=== PATIENT | male | born 1955 | race Caucasian/White ===

== ENCOUNTER 2017-08-13 14:44 | Inpatient (IN) | payer SELFPAY ==
[~2017-08-13] VITALS: Ht 165.1 cm; Wt 86.2 kg
[~2017-08-13 14:44] MED LIST: INSU100V12 SQ; INVOK100TB PO; LEVO150 PO; LURA40TA PO; METF-283 PO; OMEG1CAP31 PO; TRAZ-147 PO
[2017-08-13] MEDS ORDERED: SODIUM CHLORIDE 0.9% 1000ML 1,000 ML IV ONE ×2 (15:26→16:47)
[2017-08-13 15:30] LABS: BASOPHILS % (AUTO) 1.2 % (0.0-5.0); EOSINOPHILS % (AUTO) 0.8 % (0.0-8.0); HEMATOCRIT 39.3 % (42-54); LYMPHOCYTES % (AUTO) 4.9 % (21.0-51.0); MEAN CORPUSCULAR HEMOGLOBIN 31.5 pg (27.0-33.0); MEAN CORPUSCULAR HGB CONC 34.7 g/dL (32.0-36.0); MEAN CORPUSCULAR VOLUME 90.9 fL (79-99); MONOCYTES % (AUTO) 4.3 % (3.0-13.0); NEUTROPHILS % (AUTO) 88.8 % (40.0-77.0); PLATELET COUNT (AUTO) 196 K/uL (130-400); RED BLOOD CELL COUNT(AUTO) 4.32 MIL/uL (4.50-6.20)
[2017-08-13 15:55] LABS: INR 0.95 (0.85-1.15)
[2017-08-13 16:06] LABS: ALBUMIN 2.8 g/dL (3.5-5.0); BILIRUBIN,TOTAL 0.6 mg/dL (0.2-1.0); CREATINE KINASE MB 4.6 ng/mL (0.5-3.6); CREATININE 2.2 mg/dL (0.5-1.5); POTASSIUM 4.5 mmol/L (3.5-5.1); TOTAL PROTEIN, SERUM 6.6 g/dL (6.0-8.3)
[2017-08-13] MEDS ORDERED: INSULIN HUMULIN R 100 UNIT/ML 3ML ONE (16:42)
[2017-08-14 01:08] VITALS: BP 125/72
[2017-08-14 03:23] VITALS: BP 121/77
[2017-08-14] MEDS ORDERED: GLUCAGON 1MG KIT 1 MG ML IM PRN (05:45)
[2017-08-14] MEDS: INSULIN HUMULIN R 100 UNIT/ML 3ML SQ SCH ×4 (06:29→21:00)
[2017-08-14 06:40] LABS: APPEARANCE,URINE Clear (CLEAR); BILIRUBIN,URINE Negative (NEGATIVE); COLOR,URINE Yellow (YELLOW); GLUCOSE, URINE (UA) >=1000 mg/dL (NEGATIVE); KETONES,URINE Trace mg/dL (NEGATIVE); LEUKOCYTE ESTERASE ,URINE Negative (NEGATIVE); NITRATE,URINE Negative (NEGATIVE); OCCULT BLOOD,URINE Negative (NEGATIVE); PH,URINE 5.5 (5.0-8.0); PROTEIN,URINE POS 1+ (NEGATIVE); UROBILINOGEN,URINE 0.2 mg/dL (0.2-1.0)
[2017-08-14 06:48] LABS: AMPHET/METH SCREEN,URINE NEGATIVE (NEGATIVE); BARBITURATE SCREEN, URINE NEGATIVE (NEGATIVE); BENZODIAZEPINES SCREEN,URINE NEGATIVE (NEGATIVE); CANNABINOID SCREEN,URINE NEGATIVE (NEGATIVE); COCAINE SCREEN,URINE NEGATIVE (NEGATIVE); OPIATE SCREEN,URINE NEGATIVE (NEGATIVE); PHENCYCLIDINE SCREEN,URINE NEGATIVE (NEGATIVE)
[2017-08-14 06:49] LABS: BACTERIA,URINE Rare /HPF (None Seen); SQUAMOUS EPITHELIAL CELL,UR Rare /LPF (0-2); WBC,URINE 0-1 /HPF (0-1)
[2017-08-14 07:00] VITALS: BP 109/57
[2017-08-14] MEDS ORDERED: IOPAMIDOL-370 100 ML VIAL IV ONE (08:51)
[2017-08-14] MEDS: PANTOPRAZOLE SODIUM 40 MG TABLET.DR PO SCH (09:36)
[2017-08-14 11:03] VITALS: BP 104/64
[2017-08-14 15:00] VITALS: BP 97/53
[2017-08-14 21:12] VITALS: BP 109/62
[2017-08-15] VITALS (7 sets, daily range): BP systolic 96–134; BP diastolic 56–69
[2017-08-15] MEDS: INSULIN HUMULIN R 100 UNIT/ML 3ML SQ SCH ×4 (06:53→20:28)
[2017-08-15] MEDS: PANTOPRAZOLE SODIUM 40 MG TABLET.DR PO SCH (10:18)
[2017-08-15] MEDS ORDERED: INSULIN HUMULIN R 100 UNIT/ML 3ML SQ SCH (12:30)
[2017-08-15] MEDS ORDERED: VANCOMYCIN PROTOCOL PER PHARMACY IV SCH (12:45)
[2017-08-15] MEDS ORDERED: CEFTRIAXONE 1GM/D5W 50ML 50 ML IV SCH (12:45)
[2017-08-15] MEDS ORDERED: COMPOUND IV REFRIGERATED 1 EACH IVSOLN MISC PRN (13:00)
[2017-08-15] MEDS ORDERED: VANCOMYCIN 1.75 GM in SODIUM CHLORIDE 0.9% 250 ML IV ONE (13:00)
[2017-08-15] MEDS ORDERED: CEFTRIAXONE SODIUM 1 GM IVP SCH (13:00)
[2017-08-15] MEDS ORDERED: SODIUM CHLORIDE 3% FOR INHALATION 4 ML/AMP VIAL.NEB IH ONE ×2 (13:53→18:20)
[2017-08-15] MEDS ORDERED: ZOSYN 3.375GM+NS 50ML 50 ML IV SCH (16:30)
[2017-08-15] MEDS: MEROPENEM 1 GM VIAL IVP SCH (17:14)
[2017-08-15] MEDS: INSULIN GLARGINE 100 UNITS/ML 10 ML VIAL SQ SCH (20:52)
[2017-08-16 03:00] VITALS: BP 94/63
[2017-08-16 04:19] LABS: HEMATOCRIT 34.2 % (42-54); MEAN CORPUSCULAR HEMOGLOBIN 31.5 pg (27.0-33.0); MEAN CORPUSCULAR HGB CONC 35.4 g/dL (32.0-36.0); PLATELET COUNT (AUTO) 151 K/uL (130-400); RED BLOOD CELL COUNT(AUTO) 3.85 MIL/uL (4.50-6.20); RED CELL DISTRIBUTION WIDTH 14.3 % (11.0-15.5); WHITE BLOOD COUNT (AUTO) 5.2 K/uL (4.8-10.8)
[2017-08-16 04:49] LABS: CREATININE 1.6 mg/dL (0.5-1.5); POTASSIUM 3.5 mmol/L (3.5-5.1)
[2017-08-16] MEDS: MEROPENEM 1 GM VIAL IVP SCH ×2 (04:57→17:08)
[2017-08-16 05:37] LABS: THYROID STIMULATING HORMONE 169.5 uIU/mL (0.36-3.74)
[2017-08-16] MEDS: INSULIN GLARGINE 100 UNITS/ML 10 ML VIAL SQ SCH ×2 (05:51→21:14)
[2017-08-16] MEDS: INSULIN HUMULIN R 100 UNIT/ML 3ML SQ SCH ×4 (05:52→21:15)
[2017-08-16] MEDS ORDERED: SODIUM CHLORIDE 3% FOR INHALATION 4 ML/AMP VIAL.NEB IH ONE (06:24)
[2017-08-16] MEDS ORDERED: LEVOTHYROXINE 150 MCG TABLET PO SCH (06:30)
[2017-08-16 08:20] VITALS: BP 115/81
[2017-08-16] MEDS ORDERED: VANCOMYCIN 1GM+NS 250ML 250 ML IV SCH (11:00)
[2017-08-16] MEDS: PANTOPRAZOLE SODIUM 40 MG TABLET.DR PO SCH (11:05)
[2017-08-16 12:00] VITALS: BP 128/83
[2017-08-16] MEDS ORDERED: ASPI-555 PO (14:59)
[2017-08-16] MEDS ORDERED: LEVO150 PO (14:59)
[2017-08-16] MEDS ORDERED: PITA2TAB2 PO (14:59)
[2017-08-16] MEDS ORDERED: INVOK100TB PO (14:59)
[2017-08-16] MEDS ORDERED: METF-283 PO (14:59)
[2017-08-16] MEDS ORDERED: LISI10TA7 PO (14:59)
[2017-08-16] MEDS ORDERED: OMEG1CAP31 PO (14:59)
[2017-08-16 17:01] VITALS: BP 124/86
[2017-08-16 19:00] VITALS: BP 140/79
[2017-08-16] MEDS: ETHAMBUTOL HCL 400 MG TABLET PO SCH (21:05)
[2017-08-16] MEDS: ISONIAZID 300 MG TAB PO SCH (21:06)
[2017-08-16] MEDS: RIFAMPIN 300 MG CAPSULE PO SCH (21:06)
[2017-08-16] MEDS: PYRIDOXINE HCL 50 MG TABLET PO SCH (21:06)
[2017-08-16] MEDS: PYRAZINAMIDE 500 MG TABLET PO SCH (21:06)
[2017-08-16 23:24] VITALS: BP 101/65
[2017-08-17] MEDS: IPRATROPIUM/ALBUTEROL SULFATE 3 ML SOLUTION IH SCH ×4 (00:09→19:10)
[2017-08-17 03:24] LABS: HEMATOCRIT 37.1 % (42-54); MEAN CORPUSCULAR HEMOGLOBIN 31.3 pg (27.0-33.0); MEAN CORPUSCULAR HGB CONC 34.9 g/dL (32.0-36.0); MEAN CORPUSCULAR VOLUME 89.7 fL (79-99); NUCLEATED RED BLOOD CELLS 0.1 % (0.0-0.19); PLATELET COUNT (AUTO) 140 K/uL (130-400); RED BLOOD CELL COUNT(AUTO) 4.13 MIL/uL (4.50-6.20); RED CELL DISTRIBUTION WIDTH 14.4 % (11.0-15.5); WHITE BLOOD COUNT (AUTO) 5.2 K/uL (4.8-10.8)
[2017-08-17 03:38] LABS: ALBUMIN 2.3 g/dL (3.5-5.0); BILIRUBIN,TOTAL 0.4 mg/dL (0.2-1.0); CREATININE 1.6 mg/dL (0.5-1.5); MAGNESIUM 1.8 mg/dL (1.80-2.40); POTASSIUM 3.6 mmol/L (3.5-5.1); TOTAL PROTEIN, SERUM 5.9 g/dL (6.0-8.3)
[2017-08-17] MEDS: MEROPENEM 1 GM VIAL IVP SCH (03:51)
[2017-08-17 04:12] VITALS: BP 93/51
[2017-08-17] MEDS: INSULIN HUMULIN R 100 UNIT/ML 3ML SQ SCH ×4 (06:03→21:00)
[2017-08-17] MEDS: LEVOTHYROXINE 88 MCG TABLET PO SCH (06:26)
[2017-08-17] MEDS: INSULIN GLARGINE 100 UNITS/ML 10 ML VIAL SQ SCH ×2 (06:30→22:36)
[2017-08-17 08:00] VITALS: BP 135/69
[2017-08-17] MEDS: PANTOPRAZOLE SODIUM 40 MG TABLET.DR PO SCH (10:37)
[2017-08-17] MEDS: PYRIDOXINE HCL 50 MG TABLET PO SCH (10:37)
[2017-08-17] MEDS: PYRAZINAMIDE 500 MG TABLET PO SCH (10:37)
[2017-08-17] MEDS: RIFAMPIN 300 MG CAPSULE PO SCH ×2 (10:37→22:40)
[2017-08-17] MEDS: ISONIAZID 300 MG TAB PO SCH (10:38)
[2017-08-17] MEDS: ETHAMBUTOL HCL 400 MG TABLET PO SCH (10:38)
[2017-08-17 11:00] VITALS: BP 109/63
[2017-08-17 16:00] VITALS: BP 108/66
[2017-08-17 20:00] VITALS: BP 115/56
[2017-08-18] VITALS: BP 116/64
[2017-08-18] MEDS: IPRATROPIUM/ALBUTEROL SULFATE 3 ML SOLUTION IH SCH ×5 (00:35→23:49)
[2017-08-18 04:00] VITALS: BP 106/66
[2017-08-18 04:22] LABS: ALBUMIN 2.3 g/dL (3.5-5.0); BILIRUBIN,DIRECT 0.1 mg/dL (0.0-0.3); BILIRUBIN,TOTAL 0.6 mg/dL (0.2-1.0); TOTAL PROTEIN, SERUM 5.9 g/dL (6.0-8.3)
[2017-08-18] MEDS: INSULIN HUMULIN R 100 UNIT/ML 3ML SQ SCH ×4 (05:53→21:00)
[2017-08-18] MEDS: INSULIN GLARGINE 100 UNITS/ML 10 ML VIAL SQ SCH ×2 (06:03→21:39)
[2017-08-18] MEDS: LEVOTHYROXINE 88 MCG TABLET PO SCH (06:04)
[2017-08-18 08:00] VITALS: BP 114/54
[2017-08-18] MEDS: ISONIAZID 300 MG TAB PO SCH (09:53)
[2017-08-18] MEDS: PANTOPRAZOLE SODIUM 40 MG TABLET.DR PO SCH (09:53)
[2017-08-18] MEDS: RIFAMPIN 300 MG CAPSULE PO SCH ×2 (09:53→21:41)
[2017-08-18] MEDS: PYRIDOXINE HCL 50 MG TABLET PO SCH (09:53)
[2017-08-18] MEDS: PYRAZINAMIDE 500 MG TABLET PO SCH (09:53)
[2017-08-18] MEDS: ETHAMBUTOL HCL 400 MG TABLET PO SCH (09:53)
[2017-08-18 11:00] VITALS: BP 123/85
[2017-08-18 16:00] VITALS: BP 135/66
[2017-08-18 20:00] VITALS: BP 108/65
[2017-08-19] VITALS (7 sets, daily range): BP systolic 95–117; BP diastolic 53–70
[2017-08-19] MEDS: INSULIN HUMULIN R 100 UNIT/ML 3ML SQ SCH ×4 (06:10→21:00)
[2017-08-19] MEDS: LEVOTHYROXINE 88 MCG TABLET PO SCH (06:13)
[2017-08-19] MEDS ORDERED: SODIUM CHLORIDE 3% FOR INHALATION 4 ML/AMP VIAL.NEB IH ONE (06:17)
[2017-08-19] MEDS: INSULIN GLARGINE 100 UNITS/ML 10 ML VIAL SQ SCH ×2 (06:49→21:10)
[2017-08-19] MEDS: IPRATROPIUM/ALBUTEROL SULFATE 3 ML SOLUTION IH SCH ×3 (06:56→18:39)
[2017-08-19] MEDS: PYRIDOXINE HCL 50 MG TABLET PO SCH (11:00)
[2017-08-19] MEDS: ISONIAZID 300 MG TAB PO SCH (11:00)
[2017-08-19] MEDS: PYRAZINAMIDE 500 MG TABLET PO SCH (11:00)
[2017-08-19] MEDS: ETHAMBUTOL HCL 400 MG TABLET PO SCH (11:00)
[2017-08-19] MEDS: RIFAMPIN 300 MG CAPSULE PO SCH ×2 (11:00→21:09)
[2017-08-19] MEDS: PANTOPRAZOLE SODIUM 40 MG TABLET.DR PO SCH (11:01)
[2017-08-19] MEDS ORDERED: INSULIN GLARGINE 100 UNITS/ML 10 ML VIAL SQ SCH (21:00)
[2017-08-19] MEDS: PITAVASTATIN CALCIUM 2 MG PO SCH (21:00)
[2017-08-20] MEDS: IPRATROPIUM/ALBUTEROL SULFATE 3 ML SOLUTION IH SCH ×4 (00:06→18:02)
[2017-08-20 03:15] VITALS: BP 92/53
[2017-08-20 04:16] LABS: ALBUMIN 2.5 g/dL (3.5-5.0); BILIRUBIN,DIRECT 0.1 mg/dL (0.0-0.3); BILIRUBIN,TOTAL 0.4 mg/dL (0.2-1.0)
[2017-08-20] MEDS: INSULIN HUMULIN R 100 UNIT/ML 3ML SQ SCH ×4 (06:38→21:00)
[2017-08-20] MEDS: LEVOTHYROXINE 88 MCG TABLET PO SCH (06:57)
[2017-08-20 08:09] VITALS: BP 111/59
[2017-08-20] MEDS: LISINOPRIL 10 MG TABLET PO SCH (09:00)
[2017-08-20] MEDS: PYRIDOXINE HCL 50 MG TABLET PO SCH (09:53)
[2017-08-20] MEDS: METFORMIN HCL 500 MG TAB.SR.24H PO SCH (09:53)
[2017-08-20] MEDS: ISONIAZID 300 MG TAB PO SCH (09:54)
[2017-08-20] MEDS: PANTOPRAZOLE SODIUM 40 MG TABLET.DR PO SCH (09:54)
[2017-08-20] MEDS: PYRAZINAMIDE 500 MG TABLET PO SCH (09:54)
[2017-08-20] MEDS: RIFAMPIN 300 MG CAPSULE PO SCH ×2 (09:54→21:07)
[2017-08-20] MEDS: ASPIRIN 81 MG EC TAB PO SCH (09:54)
[2017-08-20] MEDS: ETHAMBUTOL HCL 400 MG TABLET PO SCH (09:54)
[2017-08-20 12:00] VITALS: BP 130/82
[2017-08-20 16:00] VITALS: BP 100/62
[2017-08-20 19:18] VITALS: BP 104/62
[2017-08-20] MEDS: PITAVASTATIN CALCIUM 2 MG PO SCH (21:00)
[2017-08-20] MEDS: INSULIN GLARGINE 100 UNITS/ML 10 ML VIAL SQ SCH (21:09)
[2017-08-21] VITALS (7 sets, daily range): BP systolic 98–123; BP diastolic 59–86
[2017-08-21] MEDS: IPRATROPIUM/ALBUTEROL SULFATE 3 ML SOLUTION IH SCH ×5 (00:50→23:26)
[2017-08-21] MEDS: INSULIN HUMULIN R 100 UNIT/ML 3ML SQ SCH ×4 (06:12→20:49)
[2017-08-21] MEDS: LEVOTHYROXINE 88 MCG TABLET PO SCH (06:12)
[2017-08-21] MEDS: PYRIDOXINE HCL 50 MG TABLET PO SCH (10:11)
[2017-08-21] MEDS: ETHAMBUTOL HCL 400 MG TABLET PO SCH (10:11)
[2017-08-21] MEDS: RIFAMPIN 300 MG CAPSULE PO SCH ×2 (10:11→20:47)
[2017-08-21] MEDS: ASPIRIN 81 MG EC TAB PO SCH (10:12)
[2017-08-21] MEDS: METFORMIN HCL 500 MG TAB.SR.24H PO SCH (10:12)
[2017-08-21] MEDS: LISINOPRIL 10 MG TABLET PO SCH (10:12)
[2017-08-21] MEDS: PANTOPRAZOLE SODIUM 40 MG TABLET.DR PO SCH (10:12)
[2017-08-21] MEDS: PYRAZINAMIDE 500 MG TABLET PO SCH (10:12)
[2017-08-21] MEDS: ISONIAZID 300 MG TAB PO SCH (10:12)
[2017-08-21] MEDS: INSULIN GLARGINE 100 UNITS/ML 10 ML VIAL SQ SCH (20:48)
[2017-08-21] MEDS: PITAVASTATIN CALCIUM 2 MG PO SCH (20:50)
[2017-08-22 04:02] VITALS: BP 97/65
[2017-08-22] MEDS: INSULIN HUMULIN R 100 UNIT/ML 3ML SQ SCH ×4 (05:44→21:00)
[2017-08-22] MEDS: LEVOTHYROXINE 88 MCG TABLET PO SCH (06:06)
[2017-08-22] MEDS: IPRATROPIUM/ALBUTEROL SULFATE 3 ML SOLUTION IH SCH ×4 (06:14→23:58)
[2017-08-22 08:00] VITALS: BP 100/62
[2017-08-22] MEDS: LISINOPRIL 10 MG TABLET PO SCH (10:17)
[2017-08-22] MEDS: ETHAMBUTOL HCL 400 MG TABLET PO SCH (10:17)
[2017-08-22] MEDS: RIFAMPIN 300 MG CAPSULE PO SCH ×2 (10:17→21:13)
[2017-08-22] MEDS: METFORMIN HCL 500 MG TAB.SR.24H PO SCH (10:17)
[2017-08-22] MEDS: PYRAZINAMIDE 500 MG TABLET PO SCH (10:18)
[2017-08-22] MEDS: ASPIRIN 81 MG EC TAB PO SCH (10:18)
[2017-08-22] MEDS: PANTOPRAZOLE SODIUM 40 MG TABLET.DR PO SCH (10:18)
[2017-08-22] MEDS: ISONIAZID 300 MG TAB PO SCH (10:18)
[2017-08-22] MEDS: PYRIDOXINE HCL 50 MG TABLET PO SCH (10:18)
[2017-08-22] MEDS ORDERED: SODIUM CHLORIDE 3% FOR INHALATION 4 ML/AMP VIAL.NEB IH ONE (11:20)
[2017-08-22 12:00] VITALS: BP 104/63
[2017-08-22 16:00] VITALS: BP 110/58
[2017-08-22 19:00] VITALS: BP 105/68
[2017-08-22] MEDS: PITAVASTATIN CALCIUM 2 MG PO SCH (21:00)
[2017-08-22] MEDS: INSULIN GLARGINE 100 UNITS/ML 10 ML VIAL SQ SCH (21:00)
[2017-08-22] MEDS: DEXTROSE 50%-WATER 50 ML DISP.SYRIN IV PRN (21:47)
[2017-08-23] VITALS (12 sets, daily range): BP systolic 84–118; BP diastolic 59–86
[2017-08-23 03:50] LABS: HEMATOCRIT 32.7 % (42-54); MEAN CORPUSCULAR HEMOGLOBIN 31.2 pg (27.0-33.0); MEAN CORPUSCULAR HGB CONC 34.8 g/dL (32.0-36.0); MEAN CORPUSCULAR VOLUME 89.7 fL (79-99); PLATELET COUNT (AUTO) 161 K/uL (130-400); RED BLOOD CELL COUNT(AUTO) 3.65 MIL/uL (4.50-6.20); RED CELL DISTRIBUTION WIDTH 13.7 % (11.0-15.5); WHITE BLOOD COUNT (AUTO) 5.4 K/uL (4.8-10.8)
[2017-08-23 04:26] LABS: ALBUMIN 2.5 g/dL (3.5-5.0); BILIRUBIN,DIRECT 0.1 mg/dL (0.0-0.3); BILIRUBIN,TOTAL 0.3 mg/dL (0.2-1.0); CREATININE 1.9 mg/dL (0.5-1.5); POTASSIUM 4.1 mmol/L (3.5-5.1); TOTAL PROTEIN, SERUM 6.1 g/dL (6.0-8.3)
[2017-08-23] MEDS: IPRATROPIUM/ALBUTEROL SULFATE 3 ML SOLUTION IH SCH ×4 (06:08→23:50)
[2017-08-23] MEDS ORDERED: SODIUM CHLORIDE 3% FOR INHALATION 4 ML/AMP VIAL.NEB IH ONE (06:13)
[2017-08-23] MEDS: INSULIN HUMULIN R 100 UNIT/ML 3ML SQ SCH ×4 (06:26→21:00)
[2017-08-23] MEDS: LEVOTHYROXINE 88 MCG TABLET PO SCH (06:26)
[2017-08-23] MEDS: METFORMIN HCL 500 MG TAB.SR.24H PO SCH (08:00)
[2017-08-23] MEDS: ASPIRIN 81 MG EC TAB PO SCH (08:00)
[2017-08-23] MEDS: PANTOPRAZOLE SODIUM 40 MG TABLET.DR PO SCH (08:01)
[2017-08-23] MEDS: LISINOPRIL 10 MG TABLET PO SCH (08:01)
[2017-08-23] MEDS ORDERED: MIDAZOLAM HCL 1 MG/ML 2ML VIAL ONE (14:10)
[2017-08-23] MEDS ORDERED: FENTANYL CITRATE PF 50 MCG/1 ML 2ML VIAL ONE (14:11)
[2017-08-23] MEDS: RIFAMPIN 300 MG CAPSULE PO SCH ×2 (16:31→22:17)
[2017-08-23] MEDS: ISONIAZID 300 MG TAB PO SCH (16:31)
[2017-08-23] MEDS: ETHAMBUTOL HCL 400 MG TABLET PO SCH (16:31)
[2017-08-23] MEDS: PYRIDOXINE HCL 50 MG TABLET PO SCH (16:31)
[2017-08-23] MEDS: PYRAZINAMIDE 500 MG TABLET PO SCH (16:32)
[2017-08-23] MEDS: INSULIN GLARGINE 100 UNITS/ML 10 ML VIAL SQ SCH (21:00)
[2017-08-23] MEDS: PITAVASTATIN CALCIUM 2 MG PO SCH (21:00)
[2017-08-24] VITALS (7 sets, daily range): BP systolic 101–119; BP diastolic 48–75
[2017-08-24 04:12] LABS: CREATININE 1.6 mg/dL (0.5-1.5)
[2017-08-24 04:17] LABS: HEMATOCRIT 31.1 % (42-54); MEAN CORPUSCULAR HEMOGLOBIN 33.3 pg (27.0-33.0); MEAN CORPUSCULAR HGB CONC 37.1 g/dL (32.0-36.0); MEAN CORPUSCULAR VOLUME 89.9 fL (79-99); NUCLEATED RED BLOOD CELLS 0.1 % (0.0-0.19); PLATELET COUNT (AUTO) 164 K/uL (130-400); RED BLOOD CELL COUNT(AUTO) 3.46 MIL/uL (4.50-6.20); RED CELL DISTRIBUTION WIDTH 13.7 % (11.0-15.5); WHITE BLOOD COUNT (AUTO) 5.5 K/uL (4.8-10.8)
[2017-08-24] MEDS: IPRATROPIUM/ALBUTEROL SULFATE 3 ML SOLUTION IH SCH ×4 (06:12→23:33)
[2017-08-24 06:38] LABS: BAND NEUTROPHILS % (MANUAL) 1 % (0-2); EOSINOPHILS % (MANUAL) 5 % (1-6); LYMPHOCYTES % (MANUAL) 17 % (22-44); MONOCYTES % (MANUAL) 2 % (2-9); SEGMENTED NEUTROPHILS % 75 % (40-70)
[2017-08-24 06:39] LABS: MAN.DIFF COMMENT-IMPRESSION MANUAL DIFFERENTIAL; PLATELET MORPHOLOGY COMMENT LARGE PLTS PRESENT
[2017-08-24] MEDS: INSULIN HUMULIN R 100 UNIT/ML 3ML SQ SCH ×4 (07:30→21:00)
[2017-08-24] MEDS ORDERED: LEVOTHYROXINE 75 MCG TABLET ONE (07:34)
[2017-08-24] MEDS: LEVOTHYROXINE 88 MCG TABLET PO SCH (08:06)
[2017-08-24] MEDS: PANTOPRAZOLE SODIUM 40 MG TABLET.DR PO SCH (10:26)
[2017-08-24] MEDS: ISONIAZID 300 MG TAB PO SCH (10:26)
[2017-08-24] MEDS: PYRIDOXINE HCL 50 MG TABLET PO SCH (10:26)
[2017-08-24] MEDS: ASPIRIN 81 MG EC TAB PO SCH (10:26)
[2017-08-24] MEDS: RIFAMPIN 300 MG CAPSULE PO SCH ×2 (10:27→20:08)
[2017-08-24] MEDS: PYRAZINAMIDE 500 MG TABLET PO SCH (10:27)
[2017-08-24] MEDS: LISINOPRIL 10 MG TABLET PO SCH (10:27)
[2017-08-24] MEDS: ETHAMBUTOL HCL 400 MG TABLET PO SCH (10:28)
[2017-08-24] MEDS: METFORMIN HCL 500 MG TAB.SR.24H PO SCH (10:28)
[2017-08-24] MEDS: INSULIN GLARGINE 100 UNITS/ML 10 ML VIAL SQ SCH (20:09)
[2017-08-24] MEDS: PITAVASTATIN CALCIUM 2 MG PO SCH (20:09)
[2017-08-25] VITALS (7 sets, daily range): BP systolic 79–135; BP diastolic 43–83
[2017-08-25 04:11] LABS: HEMATOCRIT 31.3 % (42-54); MEAN CORPUSCULAR HEMOGLOBIN 31.7 pg (27.0-33.0); MEAN CORPUSCULAR HGB CONC 35.3 g/dL (32.0-36.0); MEAN CORPUSCULAR VOLUME 89.8 fL (79-99); PLATELET COUNT (AUTO) 165 K/uL (130-400); RED BLOOD CELL COUNT(AUTO) 3.48 MIL/uL (4.50-6.20); RED CELL DISTRIBUTION WIDTH 13.7 % (11.0-15.5); WHITE BLOOD COUNT (AUTO) 5.5 K/uL (4.8-10.8)
[2017-08-25 04:28] LABS: ALBUMIN 2.6 g/dL (3.5-5.0); BILIRUBIN,TOTAL 0.3 mg/dL (0.2-1.0); CREATININE 2.1 mg/dL (0.5-1.5); MAGNESIUM 1.6 mg/dL (1.80-2.40); PHOSPHORUS 4.4 mg/dL (2.5-4.9); POTASSIUM 4.4 mmol/L (3.5-5.1); TOTAL PROTEIN, SERUM 6.3 g/dL (6.0-8.3)
[2017-08-25 04:55] LABS: BAND NEUTROPHILS % (MANUAL) 13 % (0-2); EOSINOPHILS % (MANUAL) 5 % (1-6); LYMPHOCYTES % (MANUAL) 28 % (22-44); MONOCYTES % (MANUAL) 3 % (2-9); SEGMENTED NEUTROPHILS % 51 % (40-70)
[2017-08-25 04:56] LABS: MAN.DIFF COMMENT-IMPRESSION MANUAL DIFFERENTIAL; PLATELET MORPHOLOGY COMMENT ADEQUATE
[2017-08-25] MEDS: LEVOTHYROXINE 88 MCG TABLET PO SCH (06:22)
[2017-08-25] MEDS: INSULIN HUMULIN R 100 UNIT/ML 3ML SQ SCH ×4 (06:23→21:00)
[2017-08-25] MEDS: IPRATROPIUM/ALBUTEROL SULFATE 3 ML SOLUTION IH SCH ×4 (06:53→23:40)
[2017-08-25] MEDS ORDERED: MAGNESIUM 2GM PREMIX 50ML 50 ML IV SCH (08:15)
[2017-08-25] MEDS: RIFAMPIN 300 MG CAPSULE PO SCH ×2 (10:45→21:55)
[2017-08-25] MEDS: PYRAZINAMIDE 500 MG TABLET PO SCH (10:45)
[2017-08-25] MEDS: PANTOPRAZOLE SODIUM 40 MG TABLET.DR PO SCH (10:45)
[2017-08-25] MEDS: PYRIDOXINE HCL 50 MG TABLET PO SCH (10:45)
[2017-08-25] MEDS: ETHAMBUTOL HCL 400 MG TABLET PO SCH (10:45)
[2017-08-25] MEDS: METFORMIN HCL 500 MG TAB.SR.24H PO SCH (10:45)
[2017-08-25] MEDS: ISONIAZID 300 MG TAB PO SCH (10:45)
[2017-08-25] MEDS: ASPIRIN 81 MG EC TAB PO SCH (10:45)
[2017-08-25] MEDS ORDERED: MAGNESIUM OXIDE 400 MG TABLET PO SCH (14:13)
[2017-08-25] MEDS: PITAVASTATIN CALCIUM 2 MG PO SCH (21:00)
[2017-08-25] MEDS: INSULIN GLARGINE 100 UNITS/ML 10 ML VIAL SQ SCH (21:58)
[2017-08-26] VITALS (7 sets, daily range): BP systolic 97–125; BP diastolic 49–82
[2017-08-26 05:53] LABS: HEMATOCRIT 31.7 % (42-54); MEAN CORPUSCULAR HEMOGLOBIN 32.2 pg (27.0-33.0); MEAN CORPUSCULAR HGB CONC 35.7 g/dL (32.0-36.0); MEAN CORPUSCULAR VOLUME 90.2 fL (79-99); NUCLEATED RED BLOOD CELLS 0.1 % (0.0-0.19); PLATELET COUNT (AUTO) 174 K/uL (130-400); RED BLOOD CELL COUNT(AUTO) 3.52 MIL/uL (4.50-6.20); RED CELL DISTRIBUTION WIDTH 14.2 % (11.0-15.5); WHITE BLOOD COUNT (AUTO) 5.1 K/uL (4.8-10.8)
[2017-08-26 06:08] LABS: CREATININE 1.7 mg/dL (0.5-1.5); MAGNESIUM 1.9 mg/dL (1.80-2.40); POTASSIUM 4.2 mmol/L (3.5-5.1)
[2017-08-26] MEDS: IPRATROPIUM/ALBUTEROL SULFATE 3 ML SOLUTION IH SCH ×4 (06:11→23:34)
[2017-08-26 06:20] LABS: BASOPHILS % (MANUAL) 2 % (0-2); EOSINOPHILS % (MANUAL) 3 % (1-6); LYMPHOCYTES % (MANUAL) 30 % (22-44); MAN.DIFF COMMENT-IMPRESSION MANUAL DIFFERENTIAL; MONOCYTES % (MANUAL) 5 % (2-9); PLATELET MORPHOLOGY COMMENT ADEQUATE; SEGMENTED NEUTROPHILS % 60 % (40-70)
[2017-08-26] MEDS: LEVOTHYROXINE 88 MCG TABLET PO SCH (06:22)
[2017-08-26] MEDS: INSULIN HUMULIN R 100 UNIT/ML 3ML SQ SCH ×3 (06:49→20:51)
[2017-08-26] MEDS: RIFAMPIN 300 MG CAPSULE PO SCH ×2 (09:44→20:47)
[2017-08-26] MEDS: ETHAMBUTOL HCL 400 MG TABLET PO SCH (09:45)
[2017-08-26] MEDS: PANTOPRAZOLE SODIUM 40 MG TABLET.DR PO SCH (09:45)
[2017-08-26] MEDS: ISONIAZID 300 MG TAB PO SCH (09:45)
[2017-08-26] MEDS: PYRIDOXINE HCL 50 MG TABLET PO SCH (09:45)
[2017-08-26] MEDS: METFORMIN HCL 500 MG TAB.SR.24H PO SCH (09:45)
[2017-08-26] MEDS: ASPIRIN 81 MG EC TAB PO SCH (09:45)
[2017-08-26] MEDS: PYRAZINAMIDE 500 MG TABLET PO SCH (09:49)
[2017-08-26] MEDS ORDERED: MAGNESIUM 2GM PREMIX 50ML 50 ML IV SCH (17:30)
[2017-08-26] MEDS ORDERED: INSULIN GLARGINE 100 UNITS/ML 10 ML VIAL SQ ONE (20:15)
[2017-08-26] MEDS: PITAVASTATIN CALCIUM 2 MG PO SCH (20:50)
[2017-08-26] MEDS: INSULIN GLARGINE 100 UNITS/ML 10 ML VIAL SQ SCH (20:50)
[2017-08-27 03:15] VITALS: BP 111/72
[2017-08-27 04:06] LABS: HEMATOCRIT 33.7 % (42-54); MEAN CORPUSCULAR HEMOGLOBIN 31.3 pg (27.0-33.0); MEAN CORPUSCULAR HGB CONC 34.6 g/dL (32.0-36.0); MEAN CORPUSCULAR VOLUME 90.5 fL (79-99); NUCLEATED RED BLOOD CELLS 0.1 % (0.0-0.19); PLATELET COUNT (AUTO) 184 K/uL (130-400); RED BLOOD CELL COUNT(AUTO) 3.73 MIL/uL (4.50-6.20); RED CELL DISTRIBUTION WIDTH 14.2 % (11.0-15.5); WHITE BLOOD COUNT (AUTO) 4.4 K/uL (4.8-10.8)
[2017-08-27 04:30] LABS: ALBUMIN 2.6 g/dL (3.5-5.0); BILIRUBIN,TOTAL 0.3 mg/dL (0.2-1.0); CREATININE 1.6 mg/dL (0.5-1.5); MAGNESIUM 1.7 mg/dL (1.80-2.40); PHOSPHORUS 3.8 mg/dL (2.5-4.9); POTASSIUM 4.1 mmol/L (3.5-5.1); TOTAL PROTEIN, SERUM 6.5 g/dL (6.0-8.3)
[2017-08-27 05:18] LABS: BAND NEUTROPHILS % (MANUAL) 8 % (0-2); BASOPHILS % (MANUAL) 1 % (0-2); EOSINOPHILS % (MANUAL) 2 % (1-6); LYMPHOCYTES % (MANUAL) 22 % (22-44); MONOCYTES % (MANUAL) 5 % (2-9); SEGMENTED NEUTROPHILS % 62 % (40-70)
[2017-08-27 05:19] LABS: MAN.DIFF COMMENT-IMPRESSION MANUAL DIFFERENTIAL; PLATELET MORPHOLOGY COMMENT ADEQUATE
[2017-08-27] MEDS: LEVOTHYROXINE 88 MCG TABLET PO SCH (06:14)
[2017-08-27] MEDS: IPRATROPIUM/ALBUTEROL SULFATE 3 ML SOLUTION IH SCH ×3 (06:18→18:40)
[2017-08-27] MEDS: INSULIN HUMULIN R 100 UNIT/ML 3ML SQ SCH ×4 (06:23→21:00)
[2017-08-27] MEDS: DEXTROSE 50%-WATER 50 ML DISP.SYRIN IV PRN (07:23)
[2017-08-27 08:00] VITALS: BP_SYST 124; BP_SYST 93; BP_DIAS 54; BP_DIAS 62
[2017-08-27] MEDS: METFORMIN HCL 500 MG TAB.SR.24H PO SCH (10:07)
[2017-08-27] MEDS: PANTOPRAZOLE SODIUM 40 MG TABLET.DR PO SCH (10:07)
[2017-08-27] MEDS: ISONIAZID 300 MG TAB PO SCH (10:07)
[2017-08-27] MEDS: ASPIRIN 81 MG EC TAB PO SCH (10:07)
[2017-08-27] MEDS: PYRIDOXINE HCL 50 MG TABLET PO SCH (10:07)
[2017-08-27] MEDS: RIFAMPIN 300 MG CAPSULE PO SCH ×2 (10:07→22:48)
[2017-08-27] MEDS: ETHAMBUTOL HCL 400 MG TABLET PO SCH (10:08)
[2017-08-27] MEDS: PYRAZINAMIDE 500 MG TABLET PO SCH (10:09)
[2017-08-27 12:00] VITALS: BP 128/80
[2017-08-27] MEDS ORDERED: MAGNESIUM SULFATE 1 GM in SODIUM CHLORIDE 0.9% 50 ML IV SCH (13:00)
[2017-08-27 16:00] VITALS: BP 104/56
[2017-08-27 20:39] VITALS: BP 101/66
[2017-08-27] MEDS: PITAVASTATIN CALCIUM 2 MG PO SCH (21:00)
[2017-08-27] MEDS: INSULIN GLARGINE 100 UNITS/ML 10 ML VIAL SQ SCH (22:54)
[2017-08-28] VITALS: BP 111/61
[2017-08-28] MEDS: IPRATROPIUM/ALBUTEROL SULFATE 3 ML SOLUTION IH SCH ×4 (00:05→18:18)
[2017-08-28 03:00] VITALS: BP 100/58
[2017-08-28] MEDS: INSULIN HUMULIN R 100 UNIT/ML 3ML SQ SCH ×4 (05:55→21:00)
[2017-08-28] MEDS: LEVOTHYROXINE 88 MCG TABLET PO SCH (06:09)
[2017-08-28 06:12] LABS: HEMATOCRIT 31.6 % (42-54); MEAN CORPUSCULAR HEMOGLOBIN 32.3 pg (27.0-33.0); MEAN CORPUSCULAR HGB CONC 35.6 g/dL (32.0-36.0); MEAN CORPUSCULAR VOLUME 90.6 fL (79-99); PLATELET COUNT (AUTO) 190 K/uL (130-400); RED BLOOD CELL COUNT(AUTO) 3.49 MIL/uL (4.50-6.20); RED CELL DISTRIBUTION WIDTH 14.3 % (11.0-15.5); WHITE BLOOD COUNT (AUTO) 4.4 K/uL (4.8-10.8)
[2017-08-28 06:20] LABS: CREATININE 1.5 mg/dL (0.5-1.5); MAGNESIUM 2.1 mg/dL (1.80-2.40); POTASSIUM 4.4 mmol/L (3.5-5.1)
[2017-08-28 07:22] LABS: BASOPHILS % (MANUAL) 3 % (0-2); EOSINOPHILS % (MANUAL) 4 % (1-6); LYMPHOCYTES % (MANUAL) 21 % (22-44); MAN.DIFF COMMENT-IMPRESSION MANUAL DIFFERENTIAL; MONOCYTES % (MANUAL) 6 % (2-9); REACTIVE LYMPHOCYTES 1 % (0-0); SEGMENTED NEUTROPHILS % 65 % (40-70)
[2017-08-28 07:23] LABS: PLATELET MORPHOLOGY COMMENT ADEQUATE
[2017-08-28 07:56] VITALS: BP 90/54
[2017-08-28] MEDS: ASPIRIN 81 MG EC TAB PO SCH (10:01)
[2017-08-28] MEDS: PANTOPRAZOLE SODIUM 40 MG TABLET.DR PO SCH (10:01)
[2017-08-28] MEDS: ETHAMBUTOL HCL 400 MG TABLET PO SCH (10:01)
[2017-08-28] MEDS: PYRIDOXINE HCL 50 MG TABLET PO SCH (10:01)
[2017-08-28] MEDS: RIFAMPIN 300 MG CAPSULE PO SCH ×2 (10:01→21:48)
[2017-08-28] MEDS: ISONIAZID 300 MG TAB PO SCH (10:01)
[2017-08-28] MEDS ORDERED: PYRAZINAMIDE 500 MG TABLET PO SCH (10:39)
[2017-08-28] MEDS ORDERED: ISONIAZID 300 MG TAB PO SCH (10:40)
[2017-08-28] MEDS ORDERED: ETHAMBUTOL HCL 400 MG TABLET PO SCH (10:41)
[2017-08-28 11:27] VITALS: BP 91/67
[2017-08-28 16:00] VITALS: BP 119/73
[2017-08-28 19:00] VITALS: BP 122/73
[2017-08-28] MEDS: PITAVASTATIN CALCIUM 2 MG PO SCH (21:00)
[2017-08-29 00:25] VITALS: BP 122/74
[2017-08-29] MEDS: IPRATROPIUM/ALBUTEROL SULFATE 3 ML SOLUTION IH SCH (00:46)
[2017-08-29 03:30] VITALS: BP 132/69
[2017-08-29 03:55] VITALS: BP 107/62
[2017-08-29] MEDS: LEVOTHYROXINE 88 MCG TABLET PO SCH (05:03)
[2017-08-29] MEDS: INSULIN HUMULIN R 100 UNIT/ML 3ML SQ SCH (05:37)
== END 2017-08-29 06:00 | disposition short-term general hospital (02) | DRG 167 ==
LOC: EDH 14:44 → EDHIP 14:45 → 4AH 22:57 → 3AH 08-15 09:32
PROVIDERS: ADMIT Family Medicine; ATTEND Family Medicine
PROC: 0B9G8ZX Drainage of Left Upper Lung Lobe, Via Natural or Artificial Opening Endoscopic, Diagnostic (ICD-10-PCS; principal; 2017-08-23)
PROC: 0B9C8ZX Drainage of Right Upper Lung Lobe, Via Natural or Artificial Opening Endoscopic, Diagnostic (ICD-10-PCS; 2017-08-23)
DX: J85.0 Gangrene and necrosis of lung (principal); A15.0 Tuberculosis of lung; E11.22 Type 2 diabetes mellitus with diabetic chronic kidney disease; I42.9 Cardiomyopathy, unspecified; N17.9 Acute kidney failure, unspecified; R78.81 Bacteremia; E11.65 Type 2 diabetes mellitus with hyperglycemia; E66.01 Morbid (severe) obesity due to excess calories; N18.3 Chronic kidney disease, stage 3 (moderate); I13.0 Hypertensive heart and chronic kidney disease with heart failure and stage 1 through stage 4 chronic kidney disease, or unspecified chronic kidney disease; I50.9 Heart failure, unspecified; B96.89 Other specified bacterial agents as the cause of diseases classified elsewhere; E03.9 Hypothyroidism, unspecified; E78.5 Hyperlipidemia, unspecified; E83.42 Hypomagnesemia; F31.9 Bipolar disorder, unspecified; G47.33 Obstructive sleep apnea (adult) (pediatric); M19.90 Unspecified osteoarthritis, unspecified site; Z77.22 Contact with and (suspected) exposure to environmental tobacco smoke (acute) (chronic); Z59.0 Homelessness; Z78.9 Other specified health status; Z83.3 Family history of diabetes mellitus; Z68.31 Body mass index [BMI] 31.0-31.9, adult; V89.2XXA Person injured in unspecified motor-vehicle accident, traffic, initial encounter; Y92.410 Unspecified street and highway as the place of occurrence of the external cause; Y93.89 Activity, other specified; Y99.8 Other external cause status
CPT/HCPCS: 36415; 70450; 71045; 71250; 72125; 74177; 80048; 80053; 80076; 80202; 80305; 81001; 82150; 82550; 82553; 82948; 83605; 83690; 83735; 84100; 84443; 84484; 85025; 85027; 85610; 85730; 86480; 87040; 87116; 87186; 87190; 87206; 87556; 92610; 93005; 93306; 94640; 94664; 99291; A4218; J0696; J1815; J2185; J2250; J3010; J3370; J3475; J7030; J7070; Q9967

== ENCOUNTER 2020-03-05 17:07 | Inpatient (IN) | payer MEDICAID, OTHER ==
[~2020-03-05] VITALS: Ht 165.1 cm; Wt 91.8 kg
[2020-03-05] MEDS ORDERED: ONDANSETRON HCL 4 MG/2 ML VIAL ONE (17:21)
[2020-03-05 17:45] LABS: BASOPHILS % (AUTO) 0.8 % (0.0-5.0); EOSINOPHILS % (AUTO) 2.2 % (0.0-8.0); MEAN CORPUSCULAR HEMOGLOBIN 29.5 pg (27.0-33.0); MEAN CORPUSCULAR HGB CONC 32.7 g/dL (32.0-36.0); MEAN CORPUSCULAR VOLUME 90.4 fL (79-99); MONOCYTES % (AUTO) 5.1 % (3.0-13.0); PLATELET COUNT (AUTO) 245 K/uL (130-400); RED BLOOD CELL COUNT(AUTO) 3.32 MIL/uL (4.50-6.20); RED CELL DISTRIBUTION WIDTH 14.6 % (11.0-15.5); WHITE BLOOD COUNT (AUTO) 10.7 K/uL (4.8-10.8)
[2020-03-05 18:13] LABS: ALBUMIN 3.5 g/dL (3.5-5.0); BILIRUBIN,TOTAL 0.2 mg/dL (0.2-1.0); CREATININE 2.4 mg/dL (0.5-1.5); POTASSIUM 5.6 mmol/L (3.5-5.1); TOTAL PROTEIN, SERUM 7.6 g/dL (6.0-8.3)
[2020-03-05] MEDS ORDERED: ASPIRIN 325 MG TABLET ONE (18:45)
[2020-03-05] MEDS ORDERED: FUROSEMIDE 10 MG/ML 4ML VIAL ONE (18:45)
[2020-03-05] MEDS ORDERED: FAMOTIDINE/PF 20 MG/2 ML VIAL IV ONE (18:46)
[2020-03-05 19:51] LABS: APPEARANCE,URINE Clear (CLEAR); BILIRUBIN,URINE Negative (NEGATIVE); COLOR,URINE Yellow (YELLOW); GLUCOSE, URINE (UA) Negative (NEGATIVE); KETONES,URINE Negative (NEGATIVE); LEUKOCYTE ESTERASE ,URINE Negative (NEGATIVE); NITRATE,URINE Negative (NEGATIVE); OCCULT BLOOD,URINE Small (NEGATIVE); PH,URINE 6.5 (5.0-8.0); PROTEIN,URINE 300 mg/dL (NEGATIVE); UROBILINOGEN,URINE 0.2 mg/dL (0.2-1.0)
[2020-03-05 20:06] LABS: BACTERIA,URINE Rare /HPF (None Seen); WBC,URINE 0-1 /HPF (0-1)
[2020-03-05 20:08] LABS: SQUAMOUS EPITHELIAL CELL,UR Rare /HPF (0-2)
[2020-03-05] MEDS ORDERED: CALCIUM GLUCONATE 1 GM/10 ML VIAL IV ONE (21:25)
[2020-03-05] MEDS ORDERED: SODIUM CHLORIDE 0.9% 50 ML IV ONE (21:26)
[2020-03-05] MEDS ORDERED: INSULIN HUMULIN R 100 UNIT/ML 3ML ONE (21:47)
[2020-03-05] MEDS ORDERED: SODIUM BICARB 50MEQ 50ML VIAL ONE (21:47)
[2020-03-05] MEDS ORDERED: DEXTROSE 50%-WATER 50 ML DISP.SYRIN IV ONE (21:48)
[2020-03-05] MEDS ORDERED: SODIUM POLYSTYRENE SULFONATE 15 GM/60 ML ML ONE (21:56)
[2020-03-05] MEDS ORDERED: ONDANSETRON HCL 4 MG/2 ML VIAL IV PRN (22:30)
[2020-03-05] MEDS ORDERED: ACETAMINOPHEN 325 MG TAB PO PRN (22:30)
[2020-03-05] MEDS ORDERED: NITROGLYCERIN 0.4 MG SL TAB SL PRN (22:30)
[2020-03-05] MEDS ORDERED: DEXTROSE 50%-WATER 50 ML DISP.SYRIN IV PRN (23:15)
[2020-03-05] MEDS ORDERED: GLUCAGON 1MG KIT 1 MG ML IM PRN (23:15)
[2020-03-06] VITALS (7 sets, daily range): BP systolic 139–164; BP diastolic 82–94
[2020-03-06] MEDS ORDERED: METF-444 PO (01:40)
[2020-03-06] MEDS ORDERED: GLIP5TAB11 PO (01:43)
[2020-03-06] MEDS: INSULIN HUMULIN R 100 UNIT/ML 3ML SQ SCH ×3 (05:20→20:42)
[2020-03-06] MEDS: ACETAMINOPHEN 325 MG TAB PO PRN ×2 (05:36→22:28)
[2020-03-06 05:40] LABS: BASOPHILS % (AUTO) 0.6 % (0.0-5.0); EOSINOPHILS % (AUTO) 1.8 % (0.0-8.0); HEMATOCRIT 26.6 % (42-54); LYMPHOCYTES % (AUTO) 11.1 % (21.0-51.0); MEAN CORPUSCULAR HEMOGLOBIN 29.4 pg (27.0-33.0); MEAN CORPUSCULAR HGB CONC 33.1 g/dL (32.0-36.0); NEUTROPHILS % (AUTO) 79.8 % (40.0-77.0); PLATELET COUNT (AUTO) 220 K/uL (130-400); RED BLOOD CELL COUNT(AUTO) 2.99 MIL/uL (4.50-6.20); RED CELL DISTRIBUTION WIDTH 14.2 % (11.0-15.5); WHITE BLOOD COUNT (AUTO) 9.8 K/uL (4.8-10.8)
[2020-03-06 07:01] LABS: ALANINE AMINOTRANSFERASE 81 U/L (12-78); ALBUMIN 3.1 g/dL (3.5-5.0); ASPARTATE AMINOTRANSFERASE 66 U/L (10-37); BILIRUBIN,DIRECT 0.1 mg/dL (0.0-0.3); BILIRUBIN,TOTAL 0.3 mg/dL (0.2-1.0); CARBON DIOXIDE 27 mmol/L (21-32); CHLORIDE 101 mmol/L (101-111); CREATININE 2.7 mg/dL (0.5-1.5); GLOMERULAR FILTR. RATE CALC 25 mL/min (>60); GLUCOSE,RANDOM 87 mg/dL (70-105); MYOGLOBIN 820 ng/mL (10-92); SODIUM SERUM 135 mmol/L (136-145); TOTAL PROTEIN, SERUM 6.8 g/dL (6.0-8.3); TROPONIN I < 0.04 ng/mL (0.00-0.06); UREA NITROGEN, BLOOD 47 mg/dL (7-18)
[2020-03-06 07:49] LABS: CREATINE KINASE, TOTAL 1087 U/L (21-232)
--- NOTE | 2020-03-06 11:00 | NUR ---
Referral for Homeless BG met with pt. who is calm, awake, alert and cooperative. Pt. reports that he is single and homeless for two days now. Pt. reports history of transient living throughout the [facility]. Pt. reports a sister Laura Tracey/[phone] who resides in [place], numerous nieces/nephews in [place]. Pt. requesting assistance with finding an apartment/housing or assisted living and verbalized to this worker that he will not return to any mcc. Pt. reported that he has stayed at [facility] and [facility] in [place] for m[facility] services and that he is not allowed to return to either mcc for breaking rules. SW spoke to pt. about mcc in [place] and pt. refused, stating it is too far, "all shelters are alike" and he would rather stay on the streets than in a mcc. Pt. also was staying with different friends, however, reports that he is not welcome back with them either. SW spoke with pt. about returning to be close with family in [place] or [place], however, he refused stating he wants to stay in the [facility]. BG provided pt. with contact information to Adult Protective Services to self report and to ask for assistance for himself. BG provided pt. with community resource list with additional numbers including [facility]. BG explained that pt. will need to enroll in programs for assistance as housing assistance from community service agencies require a timely process and that assisted living facilities are not covered by insurances or medicaid. Pt. receives monthly disability in the amount of $800/monthly and [employer] $117/month. [facility]. has [facility] and Medicaid, stating that if prescriptions are given, they are covered by his medicaid. Pt. is also aware of [facility]. Pt. denies any use of illicit substances, etoh or tobacco. Pt. reports a history of depression for which he was under the care of [facility], however, he has not had a follow up in over 2yrs as he has not had any symptoms. Pt. denied any history of suicide attempts or inpatient treatment. Pt. denies any current thoughts of harm to self or others, denies depressed mood or anxiety. Pt. has contact information for [facility] in the event that he needs to return to services. DCP: Pt. stated that at this time, he is unaware of where he will go when discharged, will try contacting friends; again, stating that he would rather stay on the streets than return to any of the shelters. Pt. to use [facility] at d/c. Addendum: 03/06/20 at 1530 by TWAN MONTE SS Amended: Links added.
[2020-03-06] MEDS: SODIUM CHLORIDE 0.9% 1000ML 1,000 ML IV SCH ×2 (13:30→23:11)
--- NOTE | 2020-03-06 16:24 | NUR ---
CM NOTE REFER TO SOCIAL SERVICE NOTE ON 03/06 FOR INFORMATION ON PATIENT. Addendum: 03/06/20 at 1624 by SYLVAIN MONTE RN CM Amended: Links added.
[2020-03-06] MEDS ORDERED: Vitamin B Complex/Vit C/Folic Acid PO SCH (17:00)
[2020-03-06] MEDS: FAMOTIDINE/PF 20 MG/2 ML VIAL IV SCH (17:10)
[2020-03-07] MEDS: ACETAMINOPHEN 325 MG TAB PO PRN (02:55)
[2020-03-07 03:52] VITALS: BP 129/58
[2020-03-07 04:57] LABS: HEMATOCRIT 26.1 % (42-54); MEAN CORPUSCULAR HEMOGLOBIN 29.4 pg (27.0-33.0); MEAN CORPUSCULAR HGB CONC 32.6 g/dL (32.0-36.0); MEAN CORPUSCULAR VOLUME 90.3 fL (79-99); RED BLOOD CELL COUNT(AUTO) 2.89 MIL/uL (4.50-6.20); RED CELL DISTRIBUTION WIDTH 14.6 % (11.0-15.5); WHITE BLOOD COUNT (AUTO) 5.7 K/uL (4.8-10.8)
[2020-03-07 05:11] LABS: CREATININE 2.6 mg/dL (0.5-1.5); MAGNESIUM 1.8 mg/dL (1.80-2.40); PHOSPHORUS 4.5 mg/dL (2.5-4.9); POTASSIUM 4.2 mmol/L (3.5-5.1); URIC ACID 6.7 mg/dL (2.6-7.2)
[2020-03-07] MEDS: SODIUM CHLORIDE 0.9% 1000ML 1,000 ML IV SCH ×2 (06:07→21:14)
[2020-03-07] MEDS: INSULIN HUMULIN R 100 UNIT/ML 3ML SQ SCH ×4 (06:27→21:13)
[2020-03-07 08:18] VITALS: BP 178/99
[2020-03-07] MEDS: FAMOTIDINE/PF 20 MG/2 ML VIAL IV SCH (08:22)
[2020-03-07] MEDS: AMLODIPINE BESYLATE 5 MG TAB PO SCH (08:23)
[2020-03-07] MEDS: Vitamin B Complex/Vit C/Folic Acid PO SCH (08:23)
[2020-03-07] MEDS ORDERED: TAMSULOSIN HCL 0.4 MG CAP.ER.24H PO SCH (09:15)
[2020-03-07] MEDS ORDERED: METOPROLOL TARTRATE 25 MG TAB PO SCH (09:15)
[2020-03-07 11:54] VITALS: BP 148/81
--- NOTE | 2020-03-07 16:00 | NUR ---
cm note spoke to dr Garcia regarding [facility] [facility] [place] and in agreement. met with patient and discussed dc planning, . Discussed options for Shelters in the area, d/t states no frends or family. Pt refuses to go to any shelters in the area. states has no family that he can live with and has no where to go at dc. closest family is in [place] and does not want to go there. call made to several private care homes, including [facility] [phone] and [facility] quote is $3500/month. call to [facility] [phone] and [facility] quote $[phone] per month. pt states unable to afford only has income of $800 per month, discussed [place] [facility] placement option and if not accepted possible private pay option, choice letter obtained, and referral sent to [facility] pending evaluations.
--- NOTE | 2020-03-07 16:05 | NUR ---
[facility]-SW contacted [facility]/Martina Noriega, left voicemail to contact this worker. Late Entry
[2020-03-07 16:27] VITALS: BP 111/72
[2020-03-07] MEDS ORDERED: RISPERIDONE 1 MG TABLET PO PRN (16:45)
[2020-03-07 20:38] VITALS: BP 124/75
[2020-03-07] MEDS: THIAMINE HCL 100 MG/ML 2ML VIAL IVP SCH (21:07)
[2020-03-07] MEDS: METOPROLOL TARTRATE 25 MG TAB PO SCH (21:07)
[2020-03-08 00:24] VITALS: BP 112/78
[2020-03-08] MEDS: SODIUM CHLORIDE 0.9% 1000ML 1,000 ML IV SCH ×3 (00:51→17:10)
[2020-03-08 03:57] VITALS: BP 143/70
[2020-03-08 03:57] LABS: HEMATOCRIT 27.5 % (42-54); MEAN CORPUSCULAR HEMOGLOBIN 29.8 pg (27.0-33.0); MEAN CORPUSCULAR HGB CONC 32.7 g/dL (32.0-36.0); MEAN CORPUSCULAR VOLUME 91.1 fL (79-99); RED BLOOD CELL COUNT(AUTO) 3.02 MIL/uL (4.50-6.20); RED CELL DISTRIBUTION WIDTH 14.4 % (11.0-15.5); WHITE BLOOD COUNT (AUTO) 5.2 K/uL (4.8-10.8)
[2020-03-08 04:09] LABS: % IRON SATURATION 14.5 % (30-44)
[2020-03-08 04:28] LABS: CREATININE 2.8 mg/dL (0.5-1.5); POTASSIUM 4.5 mmol/L (3.5-5.1)
[2020-03-08] MEDS: INSULIN HUMULIN R 100 UNIT/ML 3ML SQ SCH ×4 (05:22→21:00)
[2020-03-08 05:56] LABS: HEMOGLOBIN A1C 6.5 % (4.0-6.0)
[2020-03-08 06:09] LABS: THYROID STIMULATING HORMONE 85.08 uIU/mL (0.36-3.74)
[2020-03-08 07:47] VITALS: BP 141/77
[2020-03-08] MEDS ORDERED: LEVOTHYROXINE 50 MCG TABLET PO SCH (09:00)
[2020-03-08] MEDS: Vitamin B Complex/Vit C/Folic Acid PO SCH (09:14)
[2020-03-08] MEDS: FAMOTIDINE/PF 20 MG/2 ML VIAL IV SCH (09:14)
[2020-03-08] MEDS: TAMSULOSIN HCL 0.4 MG CAP.ER.24H PO SCH (09:14)
[2020-03-08] MEDS: THIAMINE HCL 100 MG/ML 2ML VIAL IVP SCH (09:14)
[2020-03-08] MEDS: METOPROLOL TARTRATE 25 MG TAB PO SCH ×2 (09:15→20:27)
[2020-03-08] MEDS: AMLODIPINE BESYLATE 5 MG TAB PO SCH (09:15)
[2020-03-08 10:30] VITALS: BP 151/75
[2020-03-08] MEDS ORDERED: COMPOUND IV MISC 1 EACH IVSOLN MISC PRN (13:45)
[2020-03-08 15:47] VITALS: BP 115/72
[2020-03-08 20:45] VITALS: BP 116/61
[2020-03-09 00:16] VITALS: BP 135/75
[2020-03-09] MEDS: SODIUM CHLORIDE 0.9% 1000ML 1,000 ML IV SCH ×2 (01:30→11:37)
[2020-03-09 03:40] VITALS: BP 118/47
[2020-03-09] MEDS: LEVOTHYROXINE 50 MCG TABLET PO SCH (05:45)
[2020-03-09 06:47] LABS: CREATININE 2.9 mg/dL (0.5-1.5); MAGNESIUM 1.9 mg/dL (1.80-2.40); POTASSIUM 4.2 mmol/L (3.5-5.1)
[2020-03-09] MEDS: INSULIN HUMULIN R 100 UNIT/ML 3ML SQ SCH ×4 (07:30→20:36)
[2020-03-09 08:35] VITALS: BP 124/67
[2020-03-09] MEDS: FAMOTIDINE/PF 20 MG/2 ML VIAL IV SCH (09:27)
[2020-03-09] MEDS: THIAMINE HCL 100 MG/ML 2ML VIAL IVP SCH (09:27)
[2020-03-09] MEDS: IRON SUCROSE COMPLEX 100 MG in SODIUM CHLORIDE 0.9% 50 ML IV SCH (09:27)
[2020-03-09] MEDS: Vitamin B Complex/Vit C/Folic Acid PO SCH (09:28)
[2020-03-09] MEDS: METOPROLOL TARTRATE 25 MG TAB PO SCH ×2 (09:29→20:35)
[2020-03-09] MEDS: AMLODIPINE BESYLATE 5 MG TAB PO SCH (09:29)
[2020-03-09] MEDS: TAMSULOSIN HCL 0.4 MG CAP.ER.24H PO SCH (09:29)
[2020-03-09 11:52] VITALS: BP 143/77
[2020-03-09] MEDS ORDERED: HEPARIN SODIUM 5000UNIT/ML 1ML VIAL SQ SCH (14:00)
[2020-03-09 15:37] VITALS: BP 126/72
[2020-03-09 20:15] VITALS: BP 138/62
[2020-03-09] MEDS: HEPARIN SODIUM 5000UNIT/ML 1ML VIAL SQ SCH (20:36)
[2020-03-10 00:25] VITALS: BP 135/65
[2020-03-10] MEDS: SODIUM CHLORIDE 0.9% 1000ML 1,000 ML IV SCH (01:17)
[2020-03-10 04:30] VITALS: BP 127/68
[2020-03-10] MEDS: INSULIN HUMULIN R 100 UNIT/ML 3ML SQ SCH ×4 (05:03→20:11)
[2020-03-10] MEDS: LEVOTHYROXINE 50 MCG TABLET PO SCH (05:05)
[2020-03-10 07:05] LABS: POTASSIUM 4.7 mmol/L (3.5-5.1)
[2020-03-10 07:30] VITALS: BP 118/60
--- NOTE | 2020-03-10 08:14 | NUR ---
Call made to Martina Noriega/Path Program, informed Martina in meeting this morning and message left.
[2020-03-10] MEDS: Vitamin B Complex/Vit C/Folic Acid PO SCH (09:49)
[2020-03-10] MEDS: METOPROLOL TARTRATE 25 MG TAB PO SCH ×2 (09:49→20:14)
[2020-03-10] MEDS: TAMSULOSIN HCL 0.4 MG CAP.ER.24H PO SCH (09:49)
[2020-03-10] MEDS: AMLODIPINE BESYLATE 5 MG TAB PO SCH (09:49)
[2020-03-10] MEDS: HEPARIN SODIUM 5000UNIT/ML 1ML VIAL SQ SCH ×2 (09:50→20:14)
[2020-03-10] MEDS: FAMOTIDINE/PF 20 MG/2 ML VIAL IV SCH (09:55)
[2020-03-10] MEDS: THIAMINE HCL 100 MG/ML 2ML VIAL IVP SCH (09:55)
[2020-03-10] MEDS: IRON SUCROSE COMPLEX 100 MG in SODIUM CHLORIDE 0.9% 50 ML IV SCH (09:57)
[2020-03-10 11:00] VITALS: BP 140/85
[2020-03-10 16:00] VITALS: BP 136/83
[2020-03-10 20:27] VITALS: BP 146/80
[2020-03-11 00:12] VITALS: BP 138/79
[2020-03-11 05:59] VITALS: BP 127/70
[2020-03-11] MEDS: LEVOTHYROXINE 50 MCG TABLET PO SCH (06:06)
[2020-03-11] MEDS: INSULIN HUMULIN R 100 UNIT/ML 3ML SQ SCH ×4 (06:06→20:21)
--- NOTE | 2020-03-11 07:30 | NUR ---
ASSESSMENT ENCOUNTERED PT AMBULATING IN HALLWAY, GAIT STEADY AND STRONG WITH STAND BY ASSIST. A&OX3, CALM COOPERATIVE AND DOES NOT APPEAR TO BE IN ANY DISTRESS NOR ANY NEURO DEFICITS PRESENT. PT DENIES PAIN, DIZZINESS OR LIGHTHEADEDNESS. CALL LIGHT WITHIN REACH.
[2020-03-11 07:41] VITALS: BP 139/68
[2020-03-11 08:30] LABS: CREATININE 3.1 mg/dL (0.5-1.5)
--- NOTE | 2020-03-11 08:30 | NUR ---
Call made to Martina Noriega/[facility], left voicemail to call this worker.
[2020-03-11] MEDS: THIAMINE HCL 100 MG TABLET PO SCH (08:33)
[2020-03-11] MEDS: FAMOTIDINE 20MG TAB 20 MG TAB PO SCH (08:33)
[2020-03-11] MEDS: Vitamin B Complex/Vit C/Folic Acid PO SCH (08:33)
[2020-03-11] MEDS: AMLODIPINE BESYLATE 5 MG TAB PO SCH (08:33)
[2020-03-11] MEDS: TAMSULOSIN HCL 0.4 MG CAP.ER.24H PO SCH (08:33)
[2020-03-11] MEDS: METOPROLOL TARTRATE 25 MG TAB PO SCH ×2 (08:33→20:19)
[2020-03-11] MEDS: HEPARIN SODIUM 5000UNIT/ML 1ML VIAL SQ SCH ×2 (08:37→20:20)
--- NOTE | 2020-03-11 08:54 | NUR ---
[facility] Just Spoke w/PATH nurse supervisor re-referral per Gabriele. PATH CM will contact patient today re-criteria. If he meets, housing assistance takes approximately one month so he will have to go to a senior care or elsewhere in the interim. CM made aware.
[2020-03-11] MEDS: IRON SUCROSE COMPLEX 100 MG in SODIUM CHLORIDE 0.9% 50 ML IV SCH (09:00)
[2020-03-11 09:18] LABS: POTASSIUM 4.5 mmol/L (3.5-5.1)
[2020-03-11 11:22] VITALS: BP 148/70
[2020-03-11 16:07] VITALS: BP 106/56
[2020-03-11 20:55] VITALS: BP 120/63
[2020-03-12 00:15] VITALS: BP 122/63
[2020-03-12 03:45] VITALS: BP 114/71
[2020-03-12] MEDS: LEVOTHYROXINE 50 MCG TABLET PO SCH (05:54)
[2020-03-12] MEDS: INSULIN HUMULIN R 100 UNIT/ML 3ML SQ SCH ×4 (05:54→19:56)
--- NOTE | 2020-03-12 08:00 | NUR ---
SW visited pt's room, pt. informed this worker that he was not contacted by [facility]ARY T[facility]ARES yesterday. BG placed call to [email or web address]/PATH program, left voicemail to contact this worker as pt. reported no contact from program business banking representative.
[2020-03-12 08:10] VITALS: BP 128/74
[2020-03-12] MEDS: TAMSULOSIN HCL 0.4 MG CAP.ER.24H PO SCH (08:18)
[2020-03-12] MEDS: METOPROLOL TARTRATE 25 MG TAB PO SCH ×2 (08:18→19:58)
[2020-03-12] MEDS: AMLODIPINE BESYLATE 5 MG TAB PO SCH (08:18)
[2020-03-12] MEDS: Vitamin B Complex/Vit C/Folic Acid PO SCH (08:18)
[2020-03-12] MEDS: FAMOTIDINE 20MG TAB 20 MG TAB PO SCH (08:18)
[2020-03-12] MEDS: THIAMINE HCL 100 MG TABLET PO SCH (08:18)
[2020-03-12] MEDS: HEPARIN SODIUM 5000UNIT/ML 1ML VIAL SQ SCH ×2 (08:26→19:59)
[2020-03-12 10:40] LABS: BASOPHILS % (AUTO) 1.1 % (0.0-5.0); EOSINOPHILS % (AUTO) 5.2 % (0.0-8.0); HEMATOCRIT 25.2 % (42-54); LYMPHOCYTES % (AUTO) 21.5 % (21.0-51.0); MEAN CORPUSCULAR HEMOGLOBIN 29.7 pg (27.0-33.0); MEAN CORPUSCULAR HGB CONC 33.3 g/dL (32.0-36.0); MONOCYTES % (AUTO) 8.8 % (3.0-13.0); PLATELET COUNT (AUTO) 223 K/uL (130-400); RED BLOOD CELL COUNT(AUTO) 2.83 MIL/uL (4.50-6.20); RED CELL DISTRIBUTION WIDTH 14.5 % (11.0-15.5); WHITE BLOOD COUNT (AUTO) 4.7 K/uL (4.8-10.8)
--- NOTE | 2020-03-12 10:40 | NUR ---
SPOKE TO PT AT BEDSIDE; PT STATES WILL FIND A PLACE TO LIVE WITH HIS CHECK. STATES TOMORROW WILL BE ABLE TO TURN ON PHONE AND MAKE CALLS. CALL TO SW, CONFIRMED NO PREPARED LIST OF [facility] THAT HE CAN CHECK OUT TODAY DECLINED BLOOD DRAW THIS MORNING ADVISED BY THIS CM THAT PATIENT CAN LEAVE TODAY IF NOT AGREEING TO TREATMENT- STATES WILL AGREE TO HAVE BLOOD DRAWN NOW DISCUSSED W AND KRISTAL HARMAN Addendum: 03/12/20 at 1057 by GRETCHEN BOURGEOIS RN CM Amended: Links added.
[2020-03-12 11:05] LABS: ALBUMIN 3.3 g/dL (3.5-5.0); BILIRUBIN,TOTAL 0.2 mg/dL (0.2-1.0); CREATININE 3.1 mg/dL (0.5-1.5); POTASSIUM 4.9 mmol/L (3.5-5.1); TOTAL PROTEIN, SERUM 6.6 g/dL (6.0-8.3)
[2020-03-12] MEDS ORDERED: LACTATED RINGERS 1000ML IV SCH (11:15)
[2020-03-12] MEDS: LACTATED RINGERS 1000ML 1,000 ML IV SCH ×2 (11:15→20:01)
[2020-03-12 11:41] VITALS: BP 132/67
[2020-03-12] MEDS: IRON SUCROSE COMPLEX 300 MG in SODIUM CHLORIDE 0.9% 250 ML IV SCH (15:00)
[2020-03-12 16:16] VITALS: BP 110/53
[2020-03-12 20:00] VITALS: BP 115/77
[2020-03-13 00:04] VITALS: BP 109/75
[2020-03-13 04:06] VITALS: BP 128/64
[2020-03-13 05:41] LABS: EOSINOPHILS % (AUTO) 4.8 % (0.0-8.0); LYMPHOCYTES % (AUTO) 22.3 % (21.0-51.0); MEAN CORPUSCULAR HEMOGLOBIN 29.7 pg (27.0-33.0); MEAN CORPUSCULAR HGB CONC 33.3 g/dL (32.0-36.0); MEAN CORPUSCULAR VOLUME 89.2 fL (79-99); NEUTROPHILS % (AUTO) 62.1 % (40.0-77.0); PLATELET COUNT (AUTO) 215 K/uL (130-400); RED BLOOD CELL COUNT(AUTO) 2.69 MIL/uL (4.50-6.20); RED CELL DISTRIBUTION WIDTH 14.6 % (11.0-15.5)
[2020-03-13] MEDS: LACTATED RINGERS 1000ML 1,000 ML IV SCH ×2 (06:04→18:20)
[2020-03-13] MEDS: INSULIN HUMULIN R 100 UNIT/ML 3ML SQ SCH ×4 (06:04→20:15)
[2020-03-13 06:08] LABS: BILIRUBIN,TOTAL 0.2 mg/dL (0.2-1.0); POTASSIUM 4.2 mmol/L (3.5-5.1); TOTAL PROTEIN, SERUM 6.2 g/dL (6.0-8.3)
[2020-03-13] MEDS: LEVOTHYROXINE 50 MCG TABLET PO SCH (06:29)
--- NOTE | 2020-03-13 08:10 | NUR ---
Telephone call made to [facility]; left voicemail to contact this worker.
[2020-03-13 08:11] VITALS: BP 129/66
[2020-03-13] MEDS: HEPARIN SODIUM 5000UNIT/ML 1ML VIAL SQ SCH ×2 (09:00→20:14)
[2020-03-13] MEDS: IRON SUCROSE COMPLEX 300 MG in SODIUM CHLORIDE 0.9% 250 ML IV SCH (09:13)
[2020-03-13] MEDS: AMLODIPINE BESYLATE 5 MG TAB PO SCH (09:13)
[2020-03-13] MEDS: METOPROLOL TARTRATE 25 MG TAB PO SCH ×2 (09:13→20:14)
[2020-03-13] MEDS: TAMSULOSIN HCL 0.4 MG CAP.ER.24H PO SCH (09:13)
[2020-03-13] MEDS: FAMOTIDINE 20MG TAB 20 MG TAB PO SCH (09:13)
[2020-03-13] MEDS: Vitamin B Complex/Vit C/Folic Acid PO SCH (09:13)
[2020-03-13] MEDS: THIAMINE HCL 100 MG TABLET PO SCH (09:13)
--- NOTE | 2020-03-13 15:46 | NUR ---
REQUET BY DR. BRADFORD TO TRY TO GET PATIENT KOJO BY TROPICAL ORDER PLACED
--- NOTE | 2020-03-13 15:58 | NUR ---
VANCE BRADFORD HERE TO SEE PATIENT- STATES - VERY CONCERNED VANCE HAS NOT YET MADE CONTACT W PT. ORDER RECD FOR FOR SCREENING CALL SO IT CAN BE DOCUMENTED IN CHART, AND ORDER TO MAKE ANOTHER CALL TO VANCE TO EXPEDITE INTAKE SCREENING CALL MADE, (PATIENT DID NOT QUALIFY FOR IP) THIS CM WAS TRANSFERRED TO INTAKE, TRIAGE STATES FINN Tripp CUSTOMER SUPPORT SPECIALIST ASSIGNED TO PATIENT-- HER NOTES SAY THAT SHE CALLED TO PT ROOM W/ NO ANSWER. MESSAGE LEFT ON FINN'S VOICE MAIL. THIS CM WENT TO PT ROOM TO CHECK ROOM PHONE FOR FUNCTION...RINGER ON PHONE TOO LOW, VOLUME ADJUSTED. PT TAUGHT PHONE FUNCTION. PHONE RANG WHILE CM CONVERSING W/ PATIENT, PT HAD TO BE ENCOURAGED TO FISH CHECKER PHONE. CALLER= FINN FROM [facility], STATED WILL CALL BACK FOR INTAKE APPOINTMENT BY PHONE AT 0830 TOMORROW MORNING. PT REQUESTED CM IN ROOM FOR APPT. WILL FOLLOW UP . PT AWARE; SIGNAGE IN ROOM FOR REMINDER., MD & RN AWARE OF PLAN. WILL UPDATE SW
--- NOTE | 2020-03-13 16:16 | NUR ---
SHELL NOTE RD WAS CONSULTED FOR PT EDUCATION ON RENAL NON HD DIET. PT WAS SEEN 03/13/20 PRIOR TO DISCHARGE. ATTEMPTED NUTRITION EDUCATION PT BEING VERY TALKATIVE AND INTERRUPTED A LOT. EDUCATIONAL HANDOUT PROVIDED TO PT. PT IS LIKELY TO BE NONCOMPLIANT TO NUTRITION RECOMMENDATIONS. Addendum: 03/13/20 at [address] Amended: Links added.
--- NOTE | 2020-03-13 16:17 | NUR ---
CLARIFICATION-[facility] was informed that pt's cell phone temporarily out of service due to non- payment and was provided with hospital room number for contact/intake purposes. This worker also provided [facility] with pt's cell phone number for future contact. ANUSHA/Lois made aware.
--- NOTE | 2020-03-13 16:20 | NUR ---
[facility] Program-Voicemails left for Martina Noriega and [facility] Manuel Aguilera re-status of intake.
[2020-03-13 17:14] VITALS: BP 120/65
[2020-03-13 19:45] VITALS: BP 132/65
[2020-03-13 23:44] VITALS: BP 116/54
[2020-03-14 03:47] VITALS: BP 143/77
[2020-03-14] MEDS: LACTATED RINGERS 1000ML 1,000 ML IV SCH ×3 (03:49→20:09)
[2020-03-14 03:59] LABS: BASOPHILS % (AUTO) 1.2 % (0.0-5.0); EOSINOPHILS % (AUTO) 4.6 % (0.0-8.0); HEMATOCRIT 23.6 % (42-54); MEAN CORPUSCULAR HEMOGLOBIN 30.2 pg (27.0-33.0); MEAN CORPUSCULAR HGB CONC 33.9 g/dL (32.0-36.0); MEAN CORPUSCULAR VOLUME 89.1 fL (79-99); MONOCYTES % (AUTO) 9.1 % (3.0-13.0); NEUTROPHILS % (AUTO) 64.5 % (40.0-77.0); PLATELET COUNT (AUTO) 223 K/uL (130-400); RED BLOOD CELL COUNT(AUTO) 2.65 MIL/uL (4.50-6.20); RED CELL DISTRIBUTION WIDTH 14.5 % (11.0-15.5); WHITE BLOOD COUNT (AUTO) 4.8 K/uL (4.8-10.8)
[2020-03-14 04:20] LABS: ALBUMIN 2.9 g/dL (3.5-5.0); BILIRUBIN,TOTAL 0.2 mg/dL (0.2-1.0); CREATININE 2.8 mg/dL (0.5-1.5); POTASSIUM 4.3 mmol/L (3.5-5.1); TOTAL PROTEIN, SERUM 6.1 g/dL (6.0-8.3)
[2020-03-14] MEDS: INSULIN HUMULIN R 100 UNIT/ML 3ML SQ SCH ×4 (04:26→20:05)
[2020-03-14] MEDS: LEVOTHYROXINE 50 MCG TABLET PO SCH (05:06)
--- NOTE | 2020-03-14 07:40 | NUR ---
ASSESSMENT ENCOUNTERED PT A&OX3, CALM COOPERATIVE AND DOES NOT APPEAR TO BE IN ANY DISTRESS NOR ANY NEURO DEFICITS PRESENT. PT DENIES PAIN, SOB, NAUSEA. PT IS AMBULATORY, GAIT STEADY AND STRONG WITH STAND BY ASSIST. CALL LIGHT WITHIN REACH.
[2020-03-14 08:31] VITALS: BP 107/57
[2020-03-14] MEDS: AMLODIPINE BESYLATE 5 MG TAB PO SCH (10:05)
[2020-03-14] MEDS: FAMOTIDINE 20MG TAB 20 MG TAB PO SCH (10:05)
[2020-03-14] MEDS: METOPROLOL TARTRATE 25 MG TAB PO SCH ×2 (10:05→20:08)
[2020-03-14] MEDS: TAMSULOSIN HCL 0.4 MG CAP.ER.24H PO SCH (10:05)
[2020-03-14] MEDS: THIAMINE HCL 100 MG TABLET PO SCH (10:05)
[2020-03-14] MEDS: HEPARIN SODIUM 5000UNIT/ML 1ML VIAL SQ SCH ×2 (10:09→20:08)
[2020-03-14] MEDS: Vitamin B Complex/Vit C/Folic Acid PO SCH (10:10)
[2020-03-14 12:11] VITALS: BP 131/71
--- NOTE | 2020-03-14 16:19 | NUR ---
PATIENT SEEN BY THIS CM EARLY THIS MORNING, JUST AFTER HIS APPT WITH FINN AT [facility]. STATES HIS CELLPHONE IS NOW WORKING, HE HAS PUT FINN'S NUMBER INTO HIS PHONE , HE GEELS CONFIDENT AND HOPEFUL AABOUT HIS DC TOMORROW- STATES WILL FIND A ROOM AND IWLL FOLLOW UP WITH [facility] FOR PLACMENT PROGRAM. NO FURTHER DC NEEDS
[2020-03-14 17:21] VITALS: BP 146/85
[2020-03-14] MEDS ORDERED: PHARMACY COMMUNICATION MISC SCH (18:15)
[2020-03-14] MEDS ORDERED: IRON SUCROSE COMPLEX 200 MG in SODIUM CHLORIDE 0.9% 100 ML IV SCH (19:00)
[2020-03-14 19:28] VITALS: BP 148/70
[2020-03-14] MEDS ORDERED: EPOETIN ALFA 10,000 UNIT/ML VIAL SQ SCH (21:00)
[2020-03-14 23:38] VITALS: BP 136/67
[2020-03-15 04:02] VITALS: BP 136/63
[2020-03-15] MEDS: INSULIN HUMULIN R 100 UNIT/ML 3ML SQ SCH ×2 (05:27→11:21)
[2020-03-15] MEDS: LEVOTHYROXINE 50 MCG TABLET PO SCH (06:07)
[2020-03-15] MEDS: METOPROLOL TARTRATE 25 MG TAB PO SCH (08:24)
[2020-03-15] MEDS: FAMOTIDINE 20MG TAB 20 MG TAB PO SCH (08:24)
[2020-03-15] MEDS: AMLODIPINE BESYLATE 5 MG TAB PO SCH (08:24)
[2020-03-15] MEDS: THIAMINE HCL 100 MG TABLET PO SCH (08:25)
[2020-03-15] MEDS: Vitamin B Complex/Vit C/Folic Acid PO SCH (08:25)
[2020-03-15] MEDS: TAMSULOSIN HCL 0.4 MG CAP.ER.24H PO SCH (08:25)
[2020-03-15] MEDS: HEPARIN SODIUM 5000UNIT/ML 1ML VIAL SQ SCH (08:28)
[2020-03-15] MEDS: LACTATED RINGERS 1000ML 1,000 ML IV SCH (08:28)
[2020-03-15 09:15] LABS: BASOPHILS % (AUTO) 0.9 % (0.0-5.0); EOSINOPHILS % (AUTO) 4.3 % (0.0-8.0); HEMATOCRIT 23.9 % (42-54); LYMPHOCYTES % (AUTO) 16.1 % (21.0-51.0); MEAN CORPUSCULAR HEMOGLOBIN 29.8 pg (27.0-33.0); MEAN CORPUSCULAR HGB CONC 33.1 g/dL (32.0-36.0); MEAN CORPUSCULAR VOLUME 90.2 fL (79-99); MONOCYTES % (AUTO) 7.9 % (3.0-13.0); NEUTROPHILS % (AUTO) 69.9 % (40.0-77.0); PLATELET COUNT (AUTO) 189 K/uL (130-400); RED BLOOD CELL COUNT(AUTO) 2.65 MIL/uL (4.50-6.20); WHITE BLOOD COUNT (AUTO) 4.4 K/uL (4.8-10.8)
[2020-03-15 09:23] VITALS: BP 126/75
[2020-03-15 09:41] LABS: POTASSIUM 4.3 mmol/L (3.5-5.1)
[2020-03-15 09:42] LABS: CREATININE 2.7 mg/dL (0.5-1.5)
--- NOTE | 2020-03-15 10:30 | NUR ---
RESTING IN BED IN LEFT SIDE-LYING POSITION WITH EYES CLOSED, RESP.'S EVEN AND UNLABORED. PT. ASLEEP. CALL LIGHT WITHIN REACH. ROOM DOOR OPEN.
[2020-03-15 12:00] VITALS: BP 145/77
[2020-03-15] MEDS ORDERED: LEVO50TA4 PO (12:56)
[2020-03-15] MEDS ORDERED: TAMS-1 PO (12:58)
[2020-03-15] MEDS ORDERED: AMLO5TAB4 PO (12:58)
--- NOTE | 2020-03-15 14:25 | NUR ---
HL REMOVED, CATHETER INTACT. DISCHARGE INSTRUCTIONS GIVEN TO PT. ALONG WITH HANDWRITTEN MD PRESCRIPTIONS. PT. STATES WILL CALL A [facility] FOR A RIDE AND HAS "A PLACE TO STAY FOR A COUPLE OF DAYS."
== END 2020-03-15 14:58 | disposition home or self-care (01) | DRG 351 ==
LOC: EDH 17:07 → EDHIP 17:08 → 4DH 03-06 00:26
PROVIDERS: ADMIT Internal Medicine; ATTEND Internal Medicine
DX: M62.82 Rhabdomyolysis (principal); N17.9 Acute kidney failure, unspecified; E87.5 Hyperkalemia; N18.9 Chronic kidney disease, unspecified; E87.1 Hypo-osmolality and hyponatremia; E03.9 Hypothyroidism, unspecified; F10.20 Alcohol dependence, uncomplicated; F31.9 Bipolar disorder, unspecified; I13.10 Hypertensive heart and chronic kidney disease without heart failure, with stage 1 through stage 4 chronic kidney disease, or unspecified chronic kidney disease; E11.22 Type 2 diabetes mellitus with diabetic chronic kidney disease; F25.9 Schizoaffective disorder, unspecified; F60.7 Dependent personality disorder; F60.6 Avoidant personality disorder; D63.8 Anemia in other chronic diseases classified elsewhere; E66.9 Obesity, unspecified; Z68.33 Body mass index [BMI] 33.0-33.9, adult; Z79.84 Long term (current) use of oral hypoglycemic drugs; Z91.14 Patient's other noncompliance with medication regimen; Z86.11 Personal history of tuberculosis; Z59.0 Homelessness; Z80.3 Family history of malignant neoplasm of breast
CPT/HCPCS: 36415; 71045; 76770; 80048; 80053; 80076; 81001; 82043; 82550; 82948; 83036; 83540; 83550; 83690; 83735; 83874; 83880; 84100; 84132; 84439; 84443; 84481; 84484; 84550; 85025; 85027; 93005; G0378; J0610; J0885; J1644; J1756; J1815; J1940; J2405; J3411; J3490; J7030; J7050; J7070; J7120